=== PATIENT | female | born 1955 ===

== ENCOUNTER 2017-02-15 08:44 | Day surgery (SDC) | payer OTHER ==
[2017-02-15] VITALS (8 sets, daily range): BP systolic 103–138; BP diastolic 51–76
[~2017-02-15] VITALS: Ht 162.6 cm; Wt 111.1 kg
[~2017-02-15 08:44] MED LIST: Avastin 10mg Inj IVITRE ONE; BSS 15ml BTL ONE; BSS 500ml btl ONE; Bupivacaine 0.75% 30ml vial INJ ONE; Dexamethasone 4mg/ml vial ONE; EPINEPHrine 1mg/1ml Amp ONE; Kenalog-40 1ml Vial ONE; Lidocaine 2% MPF 5ml Vial INJ ONE; Maxitrol Opth Susp 5ml ONE; Povidone-Iodine 5% opth solution ONE; Tetracaine 0.5% Opth Soln ONE
[2017-02-15] MEDS ORDERED: Cyclopentolate 1% Opth Sol ONE (09:12)
[2017-02-15] MEDS ORDERED: Phenylephrine 2.5% Op Soln ONE (09:12)
[2017-02-15] MEDS ORDERED: Goniosol 2.5% Opth Soln - 15ml ONE (09:26)
[2017-02-15] MEDS: Phenylephrine 2.5% Op Soln LEFT EYE SCH ×3 (09:44→10:04)
[2017-02-15] MEDS: Cyclopentolate 1% Opth Sol LEFT EYE SCH ×3 (09:44→10:04)
[2017-02-15] MEDS ORDERED: LISINOPRIL-HCT1 EACH ORAL (09:53)
[2017-02-15] MEDS ORDERED: AMLODIPINE BESYL5 MG ORAL (09:53)
[2017-02-15] MEDS ORDERED: SOTALOL80 M1 ORAL (09:53)
[2017-02-15] MEDS ORDERED: Vancomycin 1gm inj IVPB ONE (12:54)
--- NOTE | 2017-02-15 12:58 | Pre-Procedure Note/Attestation ---
Pre-Procedure Note/Attestation Complete Prior to Procedure Planned Procedure: left Procedure Narrative: 23G PPV/EL OS Indications for Procedure Pre-Operative Diagnosis: vitreous hemorrhage Attestation I attest that I discussed the nature of the procedure; its benefits; risks and complications; and alternatives (and the risks and benefits of such alternatives ), prior to the procedure, with the patient (or the patient's legal associate financial representative). I attest that, if there was a reasonable possibility of needing a blood transfusion, the patient (or the patient's legal associate financial representative) was given the [facility] standardized written summary, pursuant to the Jordy Yesy Blood Safety Act ([place] Health and Safety Code # 1645, as amended). I attest that I re-evaluated the patient just prior to the surgery and that there has been no change in the patient's H&P, except as documented below: EVON CABRERA M.D. Feb 15, 2017 12:58
[2017-02-15] MEDS ORDERED: Metoclopramide 10mg/2ml Inj ONE (13:00)
[2017-02-15] MEDS ORDERED: ePHEDrine 50mg/ml Inj ONE (13:00)
[2017-02-15] MEDS ORDERED: Midazolam 2mg/2ml Inj ONE (13:00)
[2017-02-15] MEDS ORDERED: Sterile Water Irrig 1000ml IRRIG ONE (13:00)
[2017-02-15] MEDS ORDERED: Lidocaine 1% MPF 10mg/ml 5ml ONE (13:00)
[2017-02-15] MEDS ORDERED: Propofol 10mg/ml 20ml IV ONE ×2 (13:00→13:51)
[2017-02-15] MEDS ORDERED: fentaNYL 100 mcg/2 mL IV ONE (13:00)
[2017-02-15] MEDS ORDERED: NS Irrig 1000ml ONE (13:00)
[2017-02-15] MEDS ORDERED: LR 1000ml ONE (13:00)
--- NOTE | 2017-02-15 13:06 | Anethesia Preoperative Eval ---
Anesthesia Pre-op PMH/ROS General Date of Evaluation: Feb 15, 2017 Time of Evaluation: 12:55 Anesthesiologist: hossein ASA Score: ASA 3 Mallampati Score Class I : Soft palate, uvula, fauces, pillars visible Class II: Soft palate, uvula, fauces visible Class III: Soft palate, base of uvula visible Class IV: Only hard plate visible Mallampati Classification: Class II Surgeon: Summer Diagnosis: hemorrhage left eye Surgical Procedure: vitrectomy left eye Anesthesia History: PONV Family History: no anesthesia problems Allergies: Coded Allergies: PENICILLINS (Verified Allergy, Severe, 02/15/17) NAUSEA IBUPROFEN (Verified Allergy, Unknown, 02/10/17) Medications: see eMAR Past Medical History Cardiovascular: Reports: HTN, CAD, other Pulmonary: Reports: BAL[place]ER Gastrointestinal/Genitourinary: Denies: GERD, CRI, ESRD, other Neurologic/Psychiatric: Denies: dementia, CVA, depression/anxiety, TIA, other Endocrine: Reports: other - pre diabetic HEENT: Denies: cataract (L), cataract (R), glaucoma, [place] (L), [place] (R), other Hematology/Immune: Denies: anemia, DVT, bleeding disorder, other Musculoskeletal/Integumentary: Reports: OA - knees Other: obesity Anesthesia Pre-op Phys. Exam Physician Exam Last Vital Signs Date Time Temp Pulse Resp B/P (MAP) Pulse Ox O2 Delivery O2 Flow Rate FiO2 02/15/17 09:55 97.7 64 20 135/76 96 Room Air Constitutional: NAD Neurologic: CN 2-12 intact Cardiovascular: RRR Respiratory: CTA Gastrointestinal: S/NT/ND Airway Exam Mallampati Score: Class II MO: full ROM: full Teeth: missing - left lower back Dentures: no upper, no lower Anesthesia Pre-op A/P Labs reviewed Studies Pre-op Studies: EKG - NSR Risk Assessment & Plan Status Change Before Surgery: No Pre-Antibiotics Given Within 1 Hr of Incision: No Maddie Sal CRNA Feb 15, 2017 13:06
--- NOTE | 2017-02-15 13:49 | Immediate Post-Op Evaluation ---
Immediate Post-Op Evalulation Immediate Post-Op Evalulation Date of Evaluation: Feb 15, 2017 Time of Evaluation: 14:04 IV Fluids: 500 Estimated Blood Loss: 3 ml Blood Pressure Systolic: 124 Blood Pressure Diastolic: 68 Pulse Rate: 77 Respiratory Rate: 25 O2 Sat by Pulse Oximetry: 99 Temperature (Fahrenheit): 98.1 Pain Score (1-10): 0 Nausea: No Vomiting: No Complications none Patient Status: reacts, patent Hydration Status: adequate Given Within 1 Hr of Incision: Maddie Mcconnell CRNA Feb 15, 2017 13:49
--- NOTE | 2017-02-15 13:51 | 48 Hour Post Anesthesia Eval ---
Post Anesthesia Evaluation Date of Evaluation: Feb 15, 2017 Time of Evaluation: 14:14 Blood Pressure Systolic: 120 0: 62 Pulse Rate: 70 Respiratory Rate: 18 Temperature (Fahrenheit): 98 O2 Sat by Pulse Oximetry: 100 Airway: patent Nausea: No Vomiting: No Pain Intensity: 0 Hydration Status: adequate Mental Status/LOC: patient returned to baseline Follow-up care needed: patient intructions given Maddie Sal CRNA Feb 15, 2017 13:51
[2017-02-15] MEDS ORDERED: Metoclopramide 10mg/2ml Inj IVP PRN (14:00)
[2017-02-15] MEDS ORDERED: fentaNYL 100 mcg/2 mL IV PRN (14:00)
[2017-02-15] MEDS ORDERED: Norco 5mg/325mg tab ORAL PRN (14:00)
--- NOTE | 2017-02-15 14:00 | Brief Operative Note ---
Immediate Post Operative Note Operative Note Chief Complaint: blurred vision Pre-op Diagnosis: vitreous hemorrhage Procedure: 23G PPV/EL/AFx/АННА left eye Post-op Diagnosis: vitreous hemorhage Post-op Diagnosis: same as pre-op Findings: consistent w/pre-op dx studies Surgeon: Summer Anesthesia: general Specimen: none Complications: none Condition: stable Fluids: minimal Estimated Blood Loss: none Drains: none Implant(s) used?: No EVON CABRERA M.D. Feb 15, 2017 14:00
--- NOTE | 2017-02-16 00:46 | Operative Note - Dictated ---
DATE OF OPERATION: 02/15/2017 SURGEON: Danny Wheeler M.D. PREOPERATIVE DIAGNOSIS: Vitreous hemorrhage, left eye. POSTOPERATIVE DIAGNOSIS: Vitreous hemorrhage, left eye. NAME OF OPERATION: A 23-gauge pars plana vitrectomy, endolaser, air-fluid exchange, and intravitreal Avastin, left eye. ANESTHESIA: General with retrobulbar block. BLOOD LOSS: None. COMPLICATIONS: None. INDICATIONS: The patient is a 61-year-old female with a history of blurred vision in her left eye. She was found to have vitreous hemorrhage and elevated intraocular pressures. The findings were discussed with the patient as well as the risks, benefits, and alternatives to the above-named procedure. The patient wishes to proceed with surgery. The patient understands that the risks include, but are not limited to, loss of vision and loss of the eye. Informed consent was obtained. DESCRIPTION OF THE PROCEDURE: On the day of the procedure, the left eye was noted to be the operative eye marked. The patient received three sets of the standard preoperative eye drops in the holding area. The patient was then brought to the operative room with appropriate anesthesia monitors were placed. The left eye was again identified as the operative eye. The nonoperative eye was patched and shielded. The patient then underwent general anesthesia with LMA. She also received an additional retrobulbar block consisting of a 1:1 mixture of 2% lidocaine without epinephrine and 0.75% bupivacaine for a total of 5 mL. The operative eye was then prepped and draped in the usual sterile standard fashion. The lid speculum was placed in the operative eye. A 23-gauge cannulas were placed with infusion located inferotemporally. A standard 3 port pars plana vitrectomy was then performed. Endolaser was used to apply panretinal photocoagulation in the distribution of the . An air-fluid exchange was then performed. A super sharp blade was then used to enter the anterior chamber in the superior temporal periphery at the superior temporal limbus. The anterior chamber was then rinsed using balanced salt solution on a cannula. The paracentesis was hydrated. The 23-gauge cannulas were then removed. The wounds were checked for leakage and found to be watertight. The intraocular pressure was palpated and found to be within normal limits. The patient then received subconjunctival injections of vancomycin and dexamethasone as well as intravitreal Avastin. The lid speculum and drapes were then removed. Maxitrol ointment and atropine eye drops were applied to the eye. The eye was patched and shielded. The patient was awakened from general anesthesia. The patient tolerated the procedure well and was returned to the postoperative care area in good condition. Danny Wheeler M.D. DR: JOSEPHINE JOB#: [id number] CC:
== END 2017-02-15 15:25 | disposition home or self-care (01) ==
LOC: SUR 08:44
DX: H43.12 Vitreous hemorrhage, left eye (principal); I10 Essential (primary) hypertension; I25.10 Atherosclerotic heart disease of native coronary artery without angina pectoris; J30.9 Allergic rhinitis, unspecified; M17.0 Bilateral primary osteoarthritis of knee; E66.9 Obesity, unspecified; Z68.41 Body mass index [BMI] 40.0-44.9, adult; B00.9 Herpesviral infection, unspecified; H40.119 Primary open-angle glaucoma, unspecified eye; K76.0 Fatty (change of) liver, not elsewhere classified; G47.33 Obstructive sleep apnea (adult) (pediatric); R73.03 Prediabetes; I51.7 Cardiomegaly; Z96.649 Presence of unspecified artificial hip joint; Z88.6 Allergy status to analgesic agent; Z88.5 Allergy status to narcotic agent; Z88.0 Allergy status to penicillin; Z91.013 Allergy to seafood; Z90.710 Acquired absence of both cervix and uterus; Z90.722 Acquired absence of ovaries, bilateral; Z90.79 Acquired absence of other genital organ(s); Z90.49 Acquired absence of other specified parts of digestive tract; Z79.82 Long term (current) use of aspirin; Z79.899 Other long term (current) drug therapy
CPT/HCPCS: 67040; J0171; J1100; J2250; J2405; J2704; J2765; J3010; J3370; J3490; J7120; J9035; 94003; 94150